=== PATIENT | male | born 1945 | race Caucasian/White ===

== ENCOUNTER 2017-02-12 06:10 | Inpatient (IN) | payer OTHER ==
[2017-02-06 10:33] VITALS: BMI 23.1
[2017-02-12] MEDS ORDERED: THROMBIN (BOVINE) 5,000 UNIT VIAL TP ONE (07:08)
[2017-02-12] MEDS ORDERED: LIDOCAINE 1%/EPI 1:100000 (20 ML MULTI DOSE VIAL) ONE (07:08)
[2017-02-12] MEDS ORDERED: BUPIVACAINE HCL/PF 2.5 MG/ML - 30 ML VIAL IJ ONE (07:09)
[2017-02-12] MEDS ORDERED: oxyCODONE HCL 10 MG SUSTAINED ACTING TABLET PO ONE (07:18)
--- NOTE | 2017-02-12 07:27 | HP ---
History & Physical Update - History History: No Change - Physical Physical: No Change - Assessment Assessment: No Change - Plan Plan: No Change
[2017-02-12] MEDS ORDERED: MIDAZOLAM HCL 2 MG/2 ML SINGLE DOSE VIAL ONE (08:00)
[2017-02-12] MEDS ORDERED: BUPIVACAINE HCL/PF (5 MG/ML) 30 ML VIAL IJ ONE (08:00)
[2017-02-12] MEDS ORDERED: DEXAMETHASONE SOD PHOSPHATE/PF 10 MG/ML SDV ONE (08:00)
[2017-02-12] MEDS ORDERED: PROPOFOL 20 ML ONE (08:52)
[2017-02-12] MEDS ORDERED: SUCCINYLCHOLINE CHLORIDE 200 MG/10 ML VIAL ONE (08:52)
[2017-02-12] MEDS ORDERED: DEXAMETHASONE SOD PHOSPHATE 4 MG/1 ML VIAL ONE (09:22)
[2017-02-12] MEDS ORDERED: ONDANSETRON 4 MG/2 ML VIAL ONE (09:22)
[2017-02-12] MEDS ORDERED: ceFAZolin SODIUM 1 GM VIAL ONE (09:30)
--- NOTE | 2017-02-12 11:34 | OP ---
<Cande Norris - Last Filed: 02/12/17 11:31> Operative Note - Note: Operative Date: 02/12/17 Pre-Operative Diagnosis: lumbar spondylolisthesis L4-L Operation: posterior decompression, fusion, instrumentation with transformainal interbody fusion of L4-L5 with allograft and neuromonitoring Surgeon: Jerry Hines Roulette Dealer: Cande Norris Anesthesiologist/CAR HOP: Chiara Brown Anesthesia: Spinal Estimated Blood Loss (mls): 20 Fluid Volume Replaced (mls): 1,100 Operative Report Dictated: Yes <Jerry Hines - Last Filed: 02/12/17 14:25> Operative Note - Note: Pre-Operative Diagnosis: Lumbar Spondylolisthesis L4-5
--- NOTE | 2017-02-12 11:36 | SURG ---
Surgery [employer] Objects Salesperson Note [employer] Objects Salesperson: Cande Norris PA-C Date of Service: 02/12/17 Diagnosis: lumbar L4-L5 spondylolithesis Procedure: posterior lumbar fusion, decompression, instrumentation, interbody fusion of L4- L5 with allograft and neuromonitoring I was present for the entirety of the operative procedure. For further detail, please refer to operative report. Visit type - Case Type Case Type: Scheduled Admission - Emergency Emergency Visit: No - New patient This patient is new to me today: Yes Date on this admission: 02/12/17
[2017-02-12 12:32] VITALS: TEMP 97.6
[2017-02-12] MEDS ORDERED: ONDANSETRON 4 MG/2 ML VIAL IVPUSH PRN (13:24)
[2017-02-12] MEDS ORDERED: oxyCODONE HCL 5 MG TABLET PO PRN (13:24)
[2017-02-12] MEDS ORDERED: LACTATED RINGERS SOLUTION 1,000 ML IV SCH (13:30)
[2017-02-12] MEDS ORDERED: CEFAZOLIN 1 GM in DEXTROSE 5%-WATER - 50 ML IVPB ONE (15:00)
[2017-02-12] MEDS ORDERED: oxyCODONE HCL 5 MG TABLET ONE (15:00)
[2017-02-12] MEDS ORDERED: CEFAZOLIN 1 GM/D5W 1 GM/50 ML BAG ONE (15:01)
[2017-02-12 16:11] VITALS: BP 120/65; PULSE 68
--- NOTE | 2017-02-12 21:45 | OP ---
DATE OF OPERATION: 02/12/2017 PREOPERATIVE DIAGNOSES: 1. L4-5 spinal stenosis. 2. L4-5 spondylolisthesis. POSTOPERATIVE DIAGNOSES: 1. L4-5 spinal stenosis. 2. L4-5 spondylolisthesis. PROCEDURE PERFORMED: 1. Transforaminal lumbar interbody fusion at L4-5. 2. Placement of instrumentation at L4-5. 3. Hemilaminectomy, L4-5. SURGEON: Jerry Hines MD ROLLWAY WORKER: BRYAN Garcia ESTIMATED BLOOD LOSS: 50 mL INTRAVENOUS FLUIDS: Per Anesthesia. ANESTHESIA: Spinal. COMPLICATIONS: None. DISPOSITION: Patient brought to the PACU in stable condition. INDICATION FOR SURGERY: The patient is a 71-year-old gentleman who has been suffering from pain from his back down his leg. X-rays and MRI were completed which noted that he had spinal stenosis at L4-5 with spondylolisthesis at that level. He had gone through an exhaustive course of treatment for this which included medications, physical therapy, as well as injections. Unfortunately, his pain continued to persist despite all this. At this point, risks, benefits, and alternatives were discussed, and the patient consented to surgery. DESCRIPTION OF PROCEDURE: Patient was brought to the operating room by the anesthesia staff. After appropriate patient identification was performed, spinal anesthesia was given. Patient was able to position himself prone onto the Eleno frame with all areas of bony prominences well padded at this time. The C-arm was brought in, and the L4 and L5 pedicles were marked off. Next, 10 mL of lidocaine with epinephrine were injected into his back. At this time, his back was prepped and draped in a sterile manner. At this point, timeout was completed. Incisions were made bilaterally over the L4 and L5 pedicles. Dissection was carried down to the fascia. Fascia was split at this time. Under C-arm guidance, trocars were advanced into both the L4 and L5 pedicles. Through the trocars, wires were inserted. Over the wires, tap was performed and screws inserted. On the left-hand side, retractor blades were set up to expose the L4-5 facet joint. This was confirmed with an x-ray. The facet joint was removed with a bur. The disk was entered using a series of pituitaries, Kerrisons, and curettes. A diskectomy was completed. The endplates were decorticated at this time. Bone graft was laid down. A cage filled with bone graft was placed in. Tulip heads were placed over the screws. A martín was measured and placed in. Caps were placed on. Compression and final tightening was performed. On the right-hand side, a martín was measured and placed in, and compression was applied. All x-ray instrumentation was removed at this time. AP and lateral x-rays confirmed the instrumentation to be in good position. All bleeding was well controlled at this time. The fascia was closed with a No. 1 Vicryl suture. The subcutaneous tissue was closed with 2-0 Vicryl suture. Skin was closed with 3-0 Monocryl suture. Dermabond was applied. Steri-Strips were applied. A sterile dressing was applied. Patient was placed supine on the OR bed, brought to the PACU in stable condition. [id number]
== END 2017-02-12 16:00 | disposition home or self-care (01) | DRG 460 ==
LOC: FM/S 06:10 → EDSTATUS 13:15
PROVIDERS: ADMIT Orthopaedic Surgery Orthopaedic Surgery of the Spine; ATTEND Orthopaedic Surgery Orthopaedic Surgery of the Spine
PROC: 0SB23ZZ Excision of Lumbar Vertebral Disc, Percutaneous Approach (ICD-10-PCS; 2017-02-12)
PROC: 0SH034Z Insertion of Internal Fixation Device into Lumbar Vertebral Joint, Percutaneous Approach (ICD-10-PCS; 2017-02-12)
PROC: 0SG03K1 Fusion of Lumbar Vertebral Joint with Nonautologous Tissue Substitute, Posterior Approach, Posterior Column, Percutaneous Approach (ICD-10-PCS; principal; 2017-02-12 09:44)
DX: M43.16 Spondylolisthesis, lumbar region (principal); M48.061 Spinal stenosis, lumbar region without neurogenic claudication
CPT/HCPCS: 72100-TC; 76001-TC; 94760